=== PATIENT | male | born 1935 | race Caucasian/White ===

== ENCOUNTER 2017-09-10 18:18 | Emergency (ER) | payer MEDICAID ==
[~2017-09-10] VITALS: Ht 165.1 cm; Wt 64.0 kg
[2017-09-10 18:23] VITALS: Ht 165.1 cm; Wt 64.0 kg
[2017-09-10 21:20] LABS: BASOPHIL % 0.4 % (0-2); PLATELET COUNT 193 x10^3mcL (130-400); RED CELL DISTRIBUTION WIDTH 13.2 % (11.5-14.5)
[2017-09-10 21:32] LABS: CALCIUM 8.6 mg/dL (8.5-10.1); CARBON DIOXIDE 26.8 mmol/L (21-32); CHLORIDE SERUM 101 mmol/L (98-107); CREATININE SERUM 1.2 mg/dL (0.7-1.3); GLUCOSE SERUM 97 mg/dL (74-106); POTASSIUM SERUM 3.7 mmol/L (3.5-5.1); SODIUM SERUM 137 mmol/L (136-145)
[2017-09-10 21:36] LABS: ALBUMIN 3.8 g/dL (3.4-5.0); ALKALINE PHOSPHATASE 70 U/L (46-116); ALT/SGPT 31 U/L (16-63); AST/SGOT 28 U/L (15-37); BILIRUBIN TOTAL 0.5 mg/dL (0.20-1.00); TOTAL PROTEIN, SERUM 7.7 g/dL (6.4-8.2)
[2017-09-11 00:43] VITALS: BP 118/64
== END 2017-09-10 20:21 | disposition home or self-care (01) ==
LOC: ED 18:18
PROVIDERS: Emergency Medicine
DX: J06.9 Acute upper respiratory infection, unspecified (principal); J20.9 Acute bronchitis, unspecified; M79.1 Myalgia; I10 Essential (primary) hypertension; G20 Parkinson's disease
CPT/HCPCS: 36415; 87804